=== PATIENT | male | born 1940 | race African-American/Black ===

== ENCOUNTER 2016-12-08 08:20 | Emergency (ER) | payer MEDICARE ==
[~2016-12-08] VITALS: Ht 170.2 cm; Wt 68.0 kg
[2016-12-08] MEDS ORDERED: EPINEPHrine 1mg/10ml carp IV ONE (08:56)
[2016-12-08] MEDS ORDERED: Sodium Bicarbonate 8.4% 50ml Carp ONE (08:56)
--- NOTE | 2016-12-08 08:58 | Emergency Room Report ---
History of Present Illness General Chief Complaint: CPR Source: Family Member, EMS Present Illness HPI 76 YOM BIBEMS for cardiac arrest. Per EMS, family "heard a thump approximately 730/735am." Family checked on him 10-15 minutes later, found him unresponsive, not breathing, called EMS. EMS on scene 750, intubated for airway protection, patient had "weak pulse." Glucose was 430. Family unsure of medical history/meds , not sure if compliant with DM meds. States "he didnt want us to know his medical problems." EMS had 1x shockable rhythm of pulseless vtach, gave 200J shock. Also gave 6 epi, 1 calcium, 1 bicarb via EMS placed right tibia IO. No ROSC en route. End tidal was max 6. No family available. Patient is full code as far as they know. No other info available here. Allergies: Coded Allergies: No Known Allergies (Unverified , 12/08/16) Patient History Limited by: medical condition Past Medical History: unable to obtain, DM Past Surgical History: unable to obtain Pertinent Family History: unable to obtain Nursing Documentation-[facility] Past Medical History: No Stated History Review of Systems All Other Systems: limited - unable to obtain, cardiac arrest Physical Exam Vital Signs Date Time Temp Pulse Resp B/P Pulse Ox O2 Delivery O2 Flow Rate FiO2 12/08/16 08:20 123 0 0 Ambu-Bag [id number] EP Interpretation: abnormal General Appearance: severe distress, cachetic Head: normocephalic, atraumatic Eyes: bilateral eye other - pupils fixed, dilated ENT: normal ENT inspection Neck: normal inspection, no carotid bruits Respiratory: normal inspection, lungs clear, no rhonchi, no wheezing, other - breath sounds only with assisted ventilation are clear, chest symmetrical Cardiovascular #1: other - asystole, pulseless Gastrointestinal: non-distended Rectal: deferred Musculoskeletal: other - IO in right tibia Neurologic: normal inspection, other - no foreceful movement of extremities Skin: no rash Procedures Critical Care Time Critical Care Time CC time 60 minutes Care for a 76 YO M in cardiac arrest. History of DM VS: asystole, pulseless, intubated by EMS DDx includes CAD, DKA, infection, CVA Patient is unresponsive, no obvious sign of trauma. Comprehensive physical exam completed, atraumatic. No history from patient; family not immediately available Resuscitation in progress - CPR, meds Airway adequately maintained by patient upon arrival. EKG reveals asystole Bedside ultrasound shows no cardiac contractility Physician spent 60 minutes of direct critical care time in ACLS protocol, discussion with family, review of bedside ultrasound, cardiac rhythm strip, looking for medical records, contacting PMD Does not include procedures Medical Decision Making Diagnostic Impression: Primary Impression: For cardiopulmonary resuscitation Additional Impression: Diabetes Qualified Codes: E13.8 - Other specified diabetes mellitus with unspecified complications ER Course Patient placed immediately on cardiac, O2 monitor Additional IV access obtained left antecubital fossa CPR continued Defib pads placed Patient easily bagged via EMS placed ET tube - blood noted from oropharynx and in ET during the resuscitation 3x epi, 1 Calcium and 1 bicarb given On multiple pulse checks, patient pulseless. Asystole on monitor. Bedside sono shows cardiac standstill on 3 successive checks. No pericardial fluid. After a combined total of EMS and ED resuscitation, patient pronounced at 833am. Son and Daughter informed in ED of patient's passing by me administration clerk contacting PMD. Rhythm Strip Diag. Results EP Interpretation: yes Rate: asystole Last Vital Signs Date Time Temp Pulse Resp B/P Pulse Ox O2 Delivery O2 Flow Rate FiO2 12/08/16 08:20 123 0 0 Ambu-Bag Status: unchanged Disposition: Condition: Critical BARTOLO LAI M.D. Dec 08, 2016 08:58
[2016-12-08 10:38] VITALS: BP 0/0
== END 2016-12-08 10:10 | disposition expired ==
LOC: EDBD 08:20 → EMR 08:55
DX: I46.9 Cardiac arrest, cause unspecified (principal); E11.9 Type 2 diabetes mellitus without complications
CPT/HCPCS: 92950; 99291; J0171